=== PATIENT | female | born 1965 | race Caucasian/White ===

== ENCOUNTER → 2021-04-04 | Outpatient (CLI) | payer BC ==
--- NOTE | 2021-04-04 11:51 | FL ---
Modified barium swallow. HISTORY: Dysphagia. Modified barium swallow was performed with the department of speech pathology. The patient was prese nted with various consistencies of barium. There is no evidence for aspiration or penetration. Prominence of the cricopharyngeus musculature. F nickolas report is to follow from the department of speech pathology. Impression: No evidence for aspiration or penetration. Prominence of the cricopharyngeus musculature.
== END | disposition home or self-care (01) ==
LOC: RADFLMAIN 03-28 10:45
PROVIDERS: ATTEND Otolaryngology
DX: R13.10 Dysphagia, unspecified (principal)
CPT/HCPCS: 74230